=== PATIENT | female | born 1970 | race Caucasian/White ===

== ENCOUNTER 2017-01-16 12:07 | Emergency (ER) | payer BC ==
[2017-01-16 12:44] LABS: HEMOGLOBIN 9.7 gm/dl (12.3-15.3); RED BLOOD COUNT 4.52 M/UL (4.00-5.10); WHITE BLOOD COUNT 10.4 K/UL (4.5-11.0)
[2017-01-16 13:16] LABS: BUN/CREATININE RATIO 20 (0-10)
== END 2017-01-16 18:40 | disposition home or self-care (01) ==
LOC: ER1 12:07
PROVIDERS: Emergency Medicine
DX: R07.9 Chest pain, unspecified (principal); R03.0 Elevated blood-pressure reading, without diagnosis of hypertension; Z95.0 Presence of cardiac pacemaker; Z88.0 Allergy status to penicillin; Z79.899 Other long term (current) drug therapy
CPT/HCPCS: 36415; 71010; 80053; 82550; 82553; 83874; 84484; 85025; 85379; 93005; 96374; 96375; 99285; C9113; J1200; J2930; J7050; Q9963

== ENCOUNTER 2021-07-25 09:14 | Emergency (ER) | payer BC ==
[~2021-07-25] VITALS: Ht 160 cm; Wt 95.3 kg
[~2021-07-25 09:14] MED LIST: CELEBREX 200MG200 MG PO; FORTAMET500 MG PO; IRON325 M1 PO; LO-DOSE ASPIRIN81 MG PO; NORCO 5-325 TA1 EACH PO; PRILOSEC OTC20 MG PO; PROAIR HFA8.5 GM INH; TOPROL XL25 MG PO; VITAMIN D3125 MC1 PO; ZANTAC150 MG PO
== END 2021-07-25 12:00 | disposition home or self-care (01) ==
LOC: ER1 09:14
DX: U07.1 COVID-19 (principal); Z23 Encounter for immunization; Z90.49 Acquired absence of other specified parts of digestive tract; Z91.041 Radiographic dye allergy status
CPT/HCPCS: 99283; M0243